=== PATIENT | male | born 1980 | race African-American/Black ===

== ENCOUNTER 2017-05-21 16:10 | Emergency (ER) | payer MEDICAID ==
[~2017-05-21] VITALS: Ht 188 cm; Wt 88.6 kg
[~2017-05-21 16:10] MED LIST: CEPH750C9 PO; NO HOME MEDS
[2017-05-21 16:14] VITALS: BP 105/62
[2017-05-21] MEDS ORDERED: BACDS PO (16:24)
[2017-05-21] MEDS ORDERED: AMOX-419 PO (16:24)
== END 2017-05-21 16:37 ==
LOC: ER 16:11
DX: S71.112A Laceration without foreign body, left thigh, initial encounter (principal); S31.821A Laceration without foreign body of left buttock, initial encounter; F15.159 Other stimulant abuse with stimulant-induced psychotic disorder, unspecified; F29 Unspecified psychosis not due to a substance or known physiological condition; Z60.2 Problems related to living alone; Z98.890 Other specified postprocedural states; Z79.899 Other long term (current) drug therapy; W54.0XXA Bitten by dog, initial encounter; Y93.89 Activity, other specified; Y92.89 Other specified places as the place of occurrence of the external cause; Y99.8 Other external cause status
CPT/HCPCS: 99283

== ENCOUNTER 2020-06-20 22:48 | Emergency (ER) | payer MEDICAID ==
[~2020-06-20] VITALS: Ht 188 cm; Wt 84.1 kg
[2020-06-20 22:57] VITALS: BP 124/79
[2020-06-20] MEDS ORDERED: CEPH250T PO (23:06)
[2020-06-20] MEDS ORDERED: DOXY100C76 PO (23:06)
== END 2020-06-20 23:25 ==
LOC: ER 22:48
DX: L03.115 Cellulitis of right lower limb (principal); F15.90 Other stimulant use, unspecified, uncomplicated; F11.90 Opioid use, unspecified, uncomplicated; Z98.890 Other specified postprocedural states; Z60.2 Problems related to living alone; Z59.0 Homelessness; Z79.2 Long term (current) use of antibiotics
CPT/HCPCS: 99283

== ENCOUNTER 2020-11-29 07:42 | Emergency (ER) | payer MEDICAID ==
[~2020-11-29] VITALS: Ht 188 cm; Wt 90.9 kg
[2020-11-29 07:57] VITALS: BP 126/60
== END 2020-11-29 08:21 | disposition left against medical advice (07) ==
LOC: ER 07:42
DX: R41.82 Altered mental status, unspecified (principal); F15.90 Other stimulant use, unspecified, uncomplicated; F11.90 Opioid use, unspecified, uncomplicated; Z86.14 Personal history of Methicillin resistant Staphylococcus aureus infection; Z98.890 Other specified postprocedural states; Z60.2 Problems related to living alone; Z59.0 Homelessness; Z79.2 Long term (current) use of antibiotics
CPT/HCPCS: 99283

== ENCOUNTER 2021-10-26 12:02 | Emergency (ER) | payer MEDICAID ==
[~2021-10-26] VITALS: Ht 185.4 cm; Wt 90.9 kg
[2021-10-26 12:06] VITALS: BP 130/83
[2021-10-26] MEDS ORDERED: normal saline 1000ML IV soln IVB ONE (12:10)
[2021-10-26 13:02] LABS: HEMOGLOBIN 13.4 g/dl (14.0-17.9); MONOCYTES # (AUTO) 0.8 X10'3 (0-0.9); NEUTROPHILS % (AUTO) 21.3 % (42-75); RED BLOOD COUNT 4.78 X10'6 (4.70-6.10)
[2021-10-26 13:04] LABS: BASOPHILS % (AUTO) 0.3 % (0-1); EOSINOPHILS % (AUTO) 0.9 % (0-6); HEMATOCRIT 40.1 % (42.0-52.0); LYMPHOCYTES % (AUTO) 61.4 % (21-51); MEAN CORPUSCULAR HGB CONC 33.4 g/dL (33.0-36.5); MEAN CORPUSCULAR VOLUME 83.9 FL (78-98); MEAN PLATELET VOLUME 7.1 FL (7.4-10.4); MONOCYTES % (AUTO) 16.1 % (2-12); NEUTROPHILS # (AUTO) 1.1 X10'3 (1.8-7.7); PLATELET COUNT 183 X10'3 (140-440); RED CELL DISTRIBUTION WIDTH 13.4 % (11.5-14.5)
[2021-10-26 13:15] LABS: ALANINE AMINOTRANSFERASE 24 U/L (12-78); ALBUMIN 3.5 G/DL (3.4-5.0); ALBUMIN/GLOBULIN RATIO 0.9 (1.1-1.5); ALKALINE PHOSPHATASE 60 IU/L (46-116); ANION GAP 5 (8-16); ASPARTATE AMINO TRANSFERASE 22 U/L (10-37); BILIRUBIN,TOTAL 0.5 MG/DL (0.1-1.0); BLOOD UREA NITROGEN 15 MG/DL (7-18); BUN/CREATININE RATIO 10.9 (5.4-32.0); CALCIUM 8.5 MG/DL (8.5-10.1); CHLORIDE 104 MMOL/L (99-107); CREATININE 1.38 MG/DL (0.60-1.10); GLUCOSE 100 MG/DL (70-104); POTASSIUM 4.2 MMOL/L (3.5-5.1); SODIUM 141 MMOL/L (135-145); TOTAL CARBON DIOXIDE 31.8 MMOL/L (24-32); TOTAL PROTEIN 7.4 G/DL (6.4-8.2); eGFR 69 ML/MIN
--- NOTE | 2021-10-26 13:17 | NUR ---
PT SEEN AMBULATING OUT OF ED BY EMS. PT'S IV CATHETER FOUND ON FLOOR WITH FLUIDS ATTACHED, CATHETER FULLT INTACT. RN AND CHARGE NURSE INFORMED.
[2021-10-26 13:19] LABS: CREATINE KINASE 124 U/L (39-308); MAGNESIUM 1.9 MG/DL (1.5-2.4)
[2021-10-26 13:44] LABS: TOTAL CELLS COUNTED 100
[2021-10-26 13:45] LABS: PLATELET ESTIMATE NORMAL
== END 2021-10-26 13:23 | disposition left against medical advice (07) ==
LOC: ER 12:03
DX: T40.411A Poisoning by fentanyl or fentanyl analogs, accidental (unintentional), initial encounter (principal); R07.89 Other chest pain; F12.90 Cannabis use, unspecified, uncomplicated; F15.90 Other stimulant use, unspecified, uncomplicated; Z86.14 Personal history of Methicillin resistant Staphylococcus aureus infection; Z60.2 Problems related to living alone; Z59.00 Homelessness unspecified; Z98.890 Other specified postprocedural states; Z79.899 Other long term (current) drug therapy; Y92.89 Other specified places as the place of occurrence of the external cause
CPT/HCPCS: 36415; 80053; 82550; 82948; 83735; 84484; 85007; 85025; 93005; 96360; 99284; J7030

== ENCOUNTER 2022-07-31 14:04 | Emergency (ER) | payer MEDICAID ==
[~2022-07-31] VITALS: Ht 190.5 cm; Wt 90.9 kg
[2022-07-31 14:25] VITALS: BP 133/78
== END 2022-07-31 14:29 ==
LOC: ER 14:05
DX: Z02.89 Encounter for other administrative examinations (principal); F12.90 Cannabis use, unspecified, uncomplicated; F15.90 Other stimulant use, unspecified, uncomplicated; F11.90 Opioid use, unspecified, uncomplicated; Z86.14 Personal history of Methicillin resistant Staphylococcus aureus infection; Z60.2 Problems related to living alone; Z59.00 Homelessness unspecified; Z98.890 Other specified postprocedural states; Z79.899 Other long term (current) drug therapy
CPT/HCPCS: 99283

== ENCOUNTER 2022-09-12 12:01 | Emergency (ER) | payer MEDICAID ==
[~2022-09-12] VITALS: Ht 190.5 cm; Wt 76.0 kg
[2022-09-12 12:17] VITALS: BP 147/93
[2022-09-12 12:21] LABS: BASOPHILS % (AUTO) 0.3 % (0-1); EOSINOPHILS # (AUTO) 0.1 X10'3 (0-0.9); EOSINOPHILS % (AUTO) 1.2 % (0-6); MEAN CORPUSCULAR HEMOGLOBIN 28.4 PG (27.0-31.0); MEAN CORPUSCULAR HGB CONC 33.5 g/dL (33.0-36.5); NEUTROPHILS # (AUTO) 2.2 X10'3 (1.8-7.7)
[2022-09-12 12:23] LABS: HEMATOCRIT 43.6 % (42.0-52.0); HEMOGLOBIN 14.6 g/dl (14.0-17.9); LYMPHOCYTES # (AUTO) 5.1 X10'3 (1.1-4.8); LYMPHOCYTES % (AUTO) 63.7 % (21-51); MEAN PLATELET VOLUME 6.7 FL (7.4-10.4); MONOCYTES # (AUTO) 0.6 X10'3 (0-0.9); MONOCYTES % (AUTO) 7.8 % (2-12); PLATELET COUNT 223 X10'3 (140-440); RED BLOOD COUNT 5.13 X10'6 (4.70-6.10); RED CELL DISTRIBUTION WIDTH 13.4 % (11.5-14.5)
[2022-09-12 12:36] LABS: ALANINE AMINOTRANSFERASE 22 U/L (12-78); ALKALINE PHOSPHATASE 58 IU/L (46-116); ANION GAP 8 (8-16); ASPARTATE AMINO TRANSFERASE 22 U/L (10-37); BILIRUBIN,TOTAL 0.7 MG/DL (0.1-1.0); BLOOD UREA NITROGEN 15 MG/DL (7-18); BUN/CREATININE RATIO 11.6 (10.0-20.0); CALCIUM 9.1 MG/DL (8.5-10.1); CHLORIDE 103 MMOL/L (99-107); CREATININE 1.29 MG/DL (0.60-1.10); GLUCOSE 112 MG/DL (70-104); POTASSIUM 3.2 MMOL/L (3.5-5.1); SODIUM 140 MMOL/L (135-145); TOTAL CARBON DIOXIDE 28.7 MMOL/L (24-32); TOTAL PROTEIN 7.9 G/DL (6.4-8.2); eGFR 74 ML/MIN
[2022-09-12 12:45] LABS: MAGNESIUM 2.1 MG/DL (1.5-2.4)
[2022-09-12 15:00] LABS: PLATELET ESTIMATE NORMAL; SMUDGE CELLS 1+; TOTAL CELLS COUNTED 100
[2022-09-13] MEDS ORDERED: HYDR-3686 PO (14:11)
== END 2022-09-12 13:11 | disposition left against medical advice (07) ==
LOC: ER 12:02
DX: R00.2 Palpitations (principal); F15.99 Other stimulant use, unspecified with unspecified stimulant-induced disorder; I10 Essential (primary) hypertension; F17.200 Nicotine dependence, unspecified, uncomplicated; F12.90 Cannabis use, unspecified, uncomplicated; Z59.00 Homelessness unspecified; Z56.0 Unemployment, unspecified
CPT/HCPCS: 36415; 71045; 80053; 83735; 83880; 84484; 85007; 85025; 93005; 99285

== ENCOUNTER 2022-09-13 12:43 | Emergency (ER) | payer MEDICAID ==
[~2022-09-13] VITALS: Ht 190.5 cm; Wt 77.4 kg
[2022-09-13 12:51] VITALS: BP 120/83
--- NOTE | 2022-09-13 13:06 | NUR ---
Pt in FTD. Pt was prescribed B/P medication. Pt wants a refill on his medication. He feels fluttering in his chest. Pt educated to POC. Pt in agreement. Pending providers eval and treatment.
[2022-09-13] MEDS ORDERED: HYDR-3686 PO (14:11)
== END 2022-09-13 14:18 | disposition home or self-care (01) ==
LOC: ER 12:44
DX: F41.9 Anxiety disorder, unspecified (principal); I10 Essential (primary) hypertension; F12.10 Cannabis abuse, uncomplicated; F15.10 Other stimulant abuse, uncomplicated; Z86.14 Personal history of Methicillin resistant Staphylococcus aureus infection; Z59.00 Homelessness unspecified; Z56.0 Unemployment, unspecified
CPT/HCPCS: 99281

== ENCOUNTER 2023-02-21 20:24 | Inpatient (IN) | payer MEDICAID ==
[~2023-02-21] VITALS: Ht 189.2 cm; Wt 90.9 kg
[2023-02-21] MEDS ORDERED: morphine 10mg/ml inj. IM ONE (21:20)
--- NOTE | 2023-02-21 22:04 | NUR ---
Dr. Ahmadi, Hospitalist at bedside.
--- NOTE | 2023-02-21 22:04 | NUR ---
Patient is refusing xrays of spine. He states "I dont have pain in my back"
--- NOTE | 2023-02-21 22:08 | NUR ---
CLAUDE vazquez reviewed by RN, approved by this RN
[2023-02-21 22:12] LABS: BASOPHILS % (AUTO) 0.2 % (0-1); EOSINOPHILS % (AUTO) 0.2 % (0-6); HEMATOCRIT 41.2 % (42.0-52.0); HEMOGLOBIN 13.9 g/dl (14.0-17.9); LYMPHOCYTES # (AUTO) 2.1 X10'3 (1.1-4.8); LYMPHOCYTES % (AUTO) 30.6 % (21-51); MEAN CORPUSCULAR HEMOGLOBIN 28.6 PG (27.0-31.0); MEAN CORPUSCULAR HGB CONC 33.7 g/dL (33.0-36.5); MEAN CORPUSCULAR VOLUME 84.9 FL (78-98); MONOCYTES # (AUTO) 0.9 X10'3 (0-0.9); MONOCYTES % (AUTO) 13.5 % (2-12); NEUTROPHILS # (AUTO) 3.8 X10'3 (1.8-7.7); NEUTROPHILS % (AUTO) 55.5 % (42-75); PLATELET COUNT 216 X10'3 (140-440); RED BLOOD COUNT 4.85 X10'6 (4.70-6.10); RED CELL DISTRIBUTION WIDTH 13.1 % (11.5-14.5); WHITE BLOOD COUNT 6.8 X10'3 (4.5-11.0)
[2023-02-21 22:18] LABS: ALANINE AMINOTRANSFERASE 18 U/L (12-78); ALBUMIN 3.6 G/DL (3.4-5.0); ALBUMIN/GLOBULIN RATIO 0.8 (1.1-1.5); ALKALINE PHOSPHATASE 62 IU/L (46-116); ANION GAP 4 (8-16); ASPARTATE AMINO TRANSFERASE 14 U/L (10-37); BILIRUBIN,TOTAL 1.8 MG/DL (0.1-1.0); BLOOD UREA NITROGEN 18 MG/DL (7-18); BUN/CREATININE RATIO 14.1 (10.0-20.0); CALCIUM 9.6 MG/DL (8.5-10.1); CHLORIDE 98 MMOL/L (99-107); CREATININE 1.28 MG/DL (0.60-1.10); GLUCOSE 112 MG/DL (70-104); POTASSIUM 3.4 MMOL/L (3.5-5.1); SODIUM 135 MMOL/L (135-145); TOTAL CARBON DIOXIDE 33.1 MMOL/L (24-32); TOTAL PROTEIN 7.9 G/DL (6.4-8.2); eCRCL 89 ML/MIN; eGFR 75 ML/MIN
[2023-02-21] MEDS ORDERED: morphine 2 MG/ML inj. syringe IV PRN (22:20)
[2023-02-21] MEDS: normal saline 1000ml 1,000 ML IV SCH (22:20)
[2023-02-21] MEDS ORDERED: potassium Cl 40MEQ/1/2NS 520ml 520 ML IV PRN (22:20)
[2023-02-21] MEDS ORDERED: magnesium Cl slow-release 64mg tablet PO PRN (22:20)
[2023-02-21] MEDS ORDERED: magnesium hydroxide 30ml (MOM) UD suspension PO PRN (22:20)
[2023-02-21] MEDS ORDERED: PERFLUTREN PROTEIN-A MICROSPHR (Optison) 0.22 MG/ML 3ML VIAL IV ONE (22:20)
[2023-02-21] MEDS ORDERED: magnesium 2GM in 50ml NS 50 ML IV PRN (22:20)
[2023-02-21] MEDS ORDERED: potassium Cl 20 mEq SR tablet PO PRN ×2 (22:20)
[2023-02-21] MEDS ORDERED: acetaminophen 325mg tablet PO PRN (22:20)
[2023-02-21] MEDS ORDERED: mag hydrox/Alum hydrox/simeth 30ml oral suspension PO PRN (22:20)
[2023-02-21] MEDS ORDERED: magnesium 4gm in 100ml NS 100 ML IV PRN (22:20)
--- NOTE | 2023-02-21 22:46 | NUR ---
optison not administered in ER
[2023-02-21] MEDS: ceFAZolin/D5W- 1GM premix 50 ML IV SCH (23:44)
[2023-02-22] MEDS ORDERED: morphine 4 MG/ML inj SYRINge IV ONE ×2 (01:05→01:10)
--- NOTE | 2023-02-22 01:20 | NUR ---
Patient in 10/10 pain after application of splint. New one time order from MD for Morphine 6 mg IV.
[2023-02-22 04:27] LABS: BASOPHILS % (AUTO) 0.3 % (0-1); EOSINOPHILS % (AUTO) 0.4 % (0-6); HEMATOCRIT 40.2 % (42.0-52.0); HEMOGLOBIN 13.8 g/dl (14.0-17.9); LYMPHOCYTES # (AUTO) 2.2 X10'3 (1.1-4.8); LYMPHOCYTES % (AUTO) 28.7 % (21-51); MEAN CORPUSCULAR HEMOGLOBIN 28.8 PG (27.0-31.0); MEAN CORPUSCULAR HGB CONC 34.3 g/dL (33.0-36.5); MEAN CORPUSCULAR VOLUME 83.9 FL (78-98); MEAN PLATELET VOLUME 7.2 FL (7.4-10.4); MONOCYTES # (AUTO) 1.1 X10'3 (0-0.9); MONOCYTES % (AUTO) 14.8 % (2-12); NEUTROPHILS # (AUTO) 4.2 X10'3 (1.8-7.7); NEUTROPHILS % (AUTO) 55.8 % (42-75); PLATELET COUNT 222 X10'3 (140-440); RED CELL DISTRIBUTION WIDTH 13.6 % (11.5-14.5); WHITE BLOOD COUNT 7.6 X10'3 (4.5-11.0)
[2023-02-22 04:29] LABS: ALANINE AMINOTRANSFERASE 19 U/L (12-78); ALBUMIN 3.5 G/DL (3.4-5.0); ALBUMIN/GLOBULIN RATIO 0.8 (1.1-1.5); ALKALINE PHOSPHATASE 58 IU/L (46-116); ANION GAP 6 (8-16); ASPARTATE AMINO TRANSFERASE 17 U/L (10-37); BILIRUBIN,TOTAL 1.5 MG/DL (0.1-1.0); BLOOD UREA NITROGEN 17 MG/DL (7-18); BUN/CREATININE RATIO 16.2 (10.0-20.0); CALCIUM 9.2 MG/DL (8.5-10.1); CHLORIDE 99 MMOL/L (99-107); CREATININE 1.05 MG/DL (0.60-1.10); GLUCOSE 116 MG/DL (70-104); MAGNESIUM 2.1 MG/DL (1.5-2.4); POTASSIUM 3.8 MMOL/L (3.5-5.1); SODIUM 135 MMOL/L (135-145); TOTAL CARBON DIOXIDE 30.4 MMOL/L (24-32); eCRCL 108 ML/MIN; eGFR > 90 ML/MIN
[2023-02-22 05:00] LABS: URINE AMPHETAMINE SCREEN POSITIVE (Neg); URINE BARBITUATE SCREEN NEGATIVE (Neg); URINE BENZODIAZEPINES SCREEN NEGATIVE (Neg); URINE CANNABINOID SCREEN POSITIVE (Neg); URINE COCAINE SCREEN NEGATIVE (Neg); URINE METHADONE SCREEN NEGATIVE (Neg); URINE OPIATE SCREEN POSITIVE (Neg); URINE PHENCYCLIDINE SCREEN NEGATIVE (Neg)
--- NOTE | 2023-02-22 06:45 | NUR ---
RECEIVED PT A&O X4, RIGHT ANKLE IN SPLINT. CSM INTACT DISTAL TO SPLINT. PENDING VENOUS STUDY AND ECHOCARDIOGRAM.
--- NOTE | 2023-02-22 07:14 | NUR ---
Dr. Dragan Rutherford (Orthopedic surgeon) came to see patient. He did marked the site for surgery. Per Dr. Rutherford, patient is going for surgery today sometime in the afternoon. Patient was instructed to be NPO
--- NOTE | 2023-02-22 07:18 | NUR ---
installer technician paged to request for the venous ultrasound of the leg to be done today
--- NOTE | 2023-02-22 07:19 | NUR ---
Paged industrial technologist regarding echocardiography ordered
[2023-02-22] MEDS: heparin, porcine 5000 units/ml vial SQ SCH ×3 (07:24→22:27)
[2023-02-22] MEDS: K and/or MAG REPLACEMENT MC SCH ×2 (07:28→19:33)
[2023-02-22] MEDS ORDERED: docusate sod 100mg capsule PO SCH (08:00)
[2023-02-22] MEDS: ceFAZolin/D5W- 1GM premix 50 ML IV SCH ×2 (08:13→15:42)
[2023-02-22] MEDS: normal saline 1000ml 1,000 ML IV SCH ×2 (08:20→15:42)
--- NOTE | 2023-02-22 13:46 | NUR ---
PT GIVEN MEAL TRAY, NOW SLEEPING. RR EVEN AND NONLABORED.
--- NOTE | 2023-02-22 14:40 | NUR ---
Received report from ED RNAnnmarie
[2023-02-22 15:10] VITALS: BP 120/70; PULSE 74; RESP 16; TEMP 98; O2SAT 99
[2023-02-22 15:30] VITALS: RESP 16; O2SAT 99
[2023-02-22] MEDS: HYDROcodone/acetaminophen 10/325mg tab PO PRN ×2 (15:47→21:53)
[2023-02-22] MEDS: nicotine 7mg patch - 24hr TD SCH (16:18)
[2023-02-22 18:00] VITALS: BP 169/78; PULSE 73; RESP 15; TEMP 98.2; O2SAT 98
[2023-02-22 18:15] VITALS: RESP 16; O2SAT 99
[2023-02-22] MEDS: morphine 2 MG/ML inj. syringe IV PRN (18:19)
[2023-02-22] MEDS ORDERED: ringers solution, lacted 1,000 ML IV ONE (19:40)
[2023-02-22 22:00] VITALS: BP 112/76; PULSE 76; RESP 13; TEMP 98.5; O2SAT 99
[2023-02-23] VITALS (24 sets, daily range): BP systolic 90–110; BP diastolic 50–71; PULSE 70–94; RESP 16–22; TEMP 97.6–99.2; O2SAT 94–100
[2023-02-23] MEDS: ceFAZolin/D5W- 1GM premix 50 ML IV SCH ×3 (00:17→17:13)
[2023-02-23] MEDS: morphine 2 MG/ML inj. syringe IV PRN ×2 (00:17→13:00)
[2023-02-23] MEDS: normal saline 1000ml 1,000 ML IV SCH ×2 (02:00→14:20)
[2023-02-23] MEDS: HYDROcodone/acetaminophen 10/325mg tab PO PRN ×2 (02:18→05:49)
[2023-02-23] MEDS ORDERED: famotidine 20mg tablet PO ONE (06:00)
[2023-02-23 06:14] LABS: BASOPHILS % (AUTO) 0.3 % (0-1); EOSINOPHILS % (AUTO) 0.2 % (0-6); HEMOGLOBIN 13.7 g/dl (14.0-17.9); LYMPHOCYTES # (AUTO) 2.3 X10'3 (1.1-4.8); LYMPHOCYTES % (AUTO) 37.4 % (21-51); MEAN CORPUSCULAR HEMOGLOBIN 29.1 PG (27.0-31.0); MEAN CORPUSCULAR HGB CONC 34.3 g/dL (33.0-36.5); MEAN CORPUSCULAR VOLUME 84.7 FL (78-98); MEAN PLATELET VOLUME 7.2 FL (7.4-10.4); MONOCYTES # (AUTO) 0.8 X10'3 (0-0.9); MONOCYTES % (AUTO) 13.5 % (2-12); NEUTROPHILS % (AUTO) 48.6 % (42-75); PLATELET COUNT 210 X10'3 (140-440); RED BLOOD COUNT 4.72 X10'6 (4.70-6.10); RED CELL DISTRIBUTION WIDTH 13.7 % (11.5-14.5); WHITE BLOOD COUNT 6.2 X10'3 (4.5-11.0)
[2023-02-23 06:20] LABS: PROTHROMBIN TIME 11.2 SECONDS (9.0-12.0)
--- NOTE | 2023-02-23 06:20 | NUR ---
Problems reprioritized. Patient report given, questions answered & plan of care reviewed with AUSTIN Slaughter.
[2023-02-23 06:23] LABS: PRE OP PARTIAL THROMB. TIME 47 SECONDS (22-32)
[2023-02-23 06:25] LABS: ALANINE AMINOTRANSFERASE 17 U/L (12-78); ALBUMIN 3.2 G/DL (3.4-5.0); ALBUMIN/GLOBULIN RATIO 0.7 (1.1-1.5); ALKALINE PHOSPHATASE 51 IU/L (46-116); ANION GAP 3 (8-16); ASPARTATE AMINO TRANSFERASE 24 U/L (10-37); BILIRUBIN,TOTAL 1.2 MG/DL (0.1-1.0); BLOOD UREA NITROGEN 18 MG/DL (7-18); BUN/CREATININE RATIO 16.8 (10.0-20.0); CALCIUM 9.1 MG/DL (8.5-10.1); CHLORIDE 102 MMOL/L (99-107); CREATININE 1.07 MG/DL (0.60-1.10); GLUCOSE 109 MG/DL (70-104); MAGNESIUM 2.2 MG/DL (1.5-2.4); POTASSIUM 4.4 MMOL/L (3.5-5.1); SODIUM 138 MMOL/L (135-145); TOTAL CARBON DIOXIDE 33.2 MMOL/L (24-32); TOTAL PROTEIN 7.5 G/DL (6.4-8.2); eCRCL 106 ML/MIN; eGFR > 90 ML/MIN
--- NOTE | 2023-02-23 06:44 | NUR ---
Patient in room ORTHO 4021. I have received report from Keila and had the opportunity to ask questions and assume patient care.
[2023-02-23] MEDS: K and/or MAG REPLACEMENT MC SCH ×2 (08:00→20:00)
--- NOTE | 2023-02-23 09:20 | NUR ---
Called OR charge to ask about surg tme and PTT of 47. Advised OR charge would let anesthesia know
[2023-02-23] MEDS: nicotine 7mg patch - 24hr TD SCH (09:31)
[2023-02-23] MEDS ORDERED: fentaNYL/PF 50MCG/1 ML 2ML syringe IV PRN ×2 (10:35)
[2023-02-23] MEDS ORDERED: ondansetron/PF 4mg/2ml inj IV PRN (10:35)
[2023-02-23] MEDS ORDERED: hydrALAZINE 20mg/ml inj. IV PRN (10:35)
[2023-02-23] MEDS ORDERED: HYDROmorphone/PF 0.2 MG/ML SYRINGE IV PRN ×2 (10:35)
[2023-02-23] MEDS ORDERED: ringers solution, lacted 1,000 ML IV SCH (10:35)
[2023-02-23] MEDS ORDERED: labetalol 20mg/4ml (5mg/ml) syringe IV PRN (10:35)
[2023-02-23] MEDS ORDERED: BUPIVAcaine/PF 2.5 mg/ml (0.25%) 30ml vial ONE (12:43)
[2023-02-23] MEDS: ondansetron/PF 4mg/2ml inj IV PRN (13:00)
[2023-02-23] MEDS ORDERED: midazolam 1 mg/ML 2ml injection ONE (13:28)
[2023-02-23] MEDS ORDERED: ondansetron/PF 4mg/2ml inj ONE (13:28)
[2023-02-23] MEDS ORDERED: sevoflurane 250ml liquid IH ONE (13:28)
[2023-02-23] MEDS ORDERED: fentaNYL/PF 50MCG/1 ML 2ML syringe ONE ×2 (13:28→14:03)
[2023-02-23] MEDS ORDERED: LIDOcaine 2% (20mg/ml) 5ml vial ONE (13:36)
[2023-02-23] MEDS ORDERED: dexamethasone sod phosphate 4mg/ml inj. ONE (13:36)
[2023-02-23] MEDS ORDERED: propofol inj 20 ML IV ONE (13:36)
[2023-02-23] MEDS ORDERED: acetaminophen 1,000mg/100ml IV 100 ML IV ONE (13:48)
[2023-02-23] MEDS ORDERED: ketamine 50mg/5ml syringe ONE (14:03)
--- NOTE | 2023-02-23 14:48 | NUR ---
Received from OR via HOSPITAL BED, accompanied by Anesthesiologist DR WATERS and report given by Anesthesiologist. PT IS GROGGY. PT PLACED ON BEDSIDE MONITOR, VSS. PT IS RECEIVING 8L 02 TO MASK AND TOLERATING WELL, WILL TITRATE DOWN PT TOLERATES. PT HAS 18G PIV TO LEFT UPPER ARM WITH LR INFUSING ORDERED. PT HAS EXTERNAL FIXATORS TO RLE WITH NIESHA WRAP, CDI. PT IS RESTING WITH NO S/S OF DISTRESS/DISCOMFORT AT THIS TIME. WILL CONTINUE TO ASSESS
[2023-02-23] MEDS ORDERED: cefazolin 2gm/D5W 100mL 100 ML IV SCH (16:00)
--- NOTE | 2023-02-23 16:40 | NUR ---
Patient in room ORTHO 4021. I have received report from Trinidad and had the opportunity to ask questions and assume patient care.
--- NOTE | 2023-02-23 16:55 | NUR ---
PATIENT HAS MET ALL CRITERIA FOR TRANSFER TO THE ORTHO FLOOR. VSS. DRESSINGS INTACT. BED LOW, CALL LIGHT PRESENT AND 2 RAILS UP. CELIO RN PRESENT TO ACCEPT CARE OF PATIENT AND REPORT HAS BEEN CALLED. ALL QUESTIONS ANSWERED TO ACCEPTING RN.
--- NOTE | 2023-02-23 18:19 | NUR ---
Problems reprioritized. Patient report given, questions answered & plan of care reviewed with Sonali.
[2023-02-23] MEDS: heparin, porcine 5000 units/ml vial SQ SCH (20:00)
[2023-02-24] VITALS (7 sets, daily range): BP systolic 90–143; BP diastolic 63–87; PULSE 71–89; RESP 16–18; TEMP 97.7–98.8; O2SAT 92–100
[2023-02-24] MEDS: ceFAZolin/D5W- 1GM premix 50 ML IV SCH ×3 (00:18→16:15)
[2023-02-24] MEDS: normal saline 1000ml 1,000 ML IV SCH ×3 (00:20→21:11)
[2023-02-24 06:18] LABS: HEMOGLOBIN 12.2 g/dl (14.0-17.9); PLATELET COUNT 245 X10'3 (140-440)
[2023-02-24 06:20] LABS: BASOPHILS % (AUTO) 0.3 % (0-1); EOSINOPHILS % (AUTO) 0.1 % (0-6); HEMATOCRIT 35.6 % (42.0-52.0); LYMPHOCYTES # (AUTO) 1.9 X10'3 (1.1-4.8); LYMPHOCYTES % (AUTO) 18.5 % (21-51); MEAN CORPUSCULAR HGB CONC 34.3 g/dL (33.0-36.5); MEAN CORPUSCULAR VOLUME 84.7 FL (78-98); MONOCYTES % (AUTO) 9.9 % (2-12); NEUTROPHILS # (AUTO) 7.4 X10'3 (1.8-7.7); NEUTROPHILS % (AUTO) 71.2 % (42-75); RED BLOOD COUNT 4.21 X10'6 (4.70-6.10); RED CELL DISTRIBUTION WIDTH 13.4 % (11.5-14.5); WHITE BLOOD COUNT 10.5 X10'3 (4.5-11.0)
[2023-02-24 06:21] LABS: ALANINE AMINOTRANSFERASE 14 U/L (12-78); ALBUMIN 2.9 G/DL (3.4-5.0); ALBUMIN/GLOBULIN RATIO 0.7 (1.1-1.5); ALKALINE PHOSPHATASE 49 IU/L (46-116); ANION GAP 5 (8-16); ASPARTATE AMINO TRANSFERASE 19 U/L (10-37); BILIRUBIN,TOTAL 0.6 MG/DL (0.1-1.0); BLOOD UREA NITROGEN 19 MG/DL (7-18); BUN/CREATININE RATIO 18.8 (10.0-20.0); CALCIUM 8.8 MG/DL (8.5-10.1); CHLORIDE 103 MMOL/L (99-107); CREATININE 1.01 MG/DL (0.60-1.10); GLUCOSE 125 MG/DL (70-104); MAGNESIUM 1.9 MG/DL (1.5-2.4); POTASSIUM 4.1 MMOL/L (3.5-5.1); SODIUM 135 MMOL/L (135-145); TOTAL CARBON DIOXIDE 26.8 MMOL/L (24-32); TOTAL PROTEIN 6.8 G/DL (6.4-8.2); eCRCL 112 ML/MIN; eGFR > 90 ML/MIN
--- NOTE | 2023-02-24 06:27 | NUR ---
Problems reprioritized. Patient report given, questions answered & plan of care reviewed with AUSTIN Walker.
--- NOTE | 2023-02-24 06:44 | NUR ---
Patient in room ORTHO 4021. I have received report from Sonali and had the opportunity to ask questions and assume patient care.
[2023-02-24] MEDS: K and/or MAG REPLACEMENT MC SCH ×2 (07:44→20:00)
[2023-02-24] MEDS: heparin, porcine 5000 units/ml vial SQ SCH ×2 (07:47→20:00)
[2023-02-24] MEDS: nicotine 7mg patch - 24hr TD SCH (07:48)
[2023-02-24] MEDS: morphine 2 MG/ML inj. syringe IV PRN ×2 (12:23→19:18)
--- NOTE | 2023-02-24 15:10 | NUR ---
RE: Luis A in 7232A, pharm is out of norco 10, too early to give morphine, can we change to a different PO med? Denise
--- NOTE | 2023-02-24 15:35 | NUR ---
Luis A in 4021I, yelling, cussing, creating grief on the floor, more than 30 minutes before I can give morphine, please advise Denise
[2023-02-24] MEDS ORDERED: morphine 2 MG/ML inj. syringe IV ONE (15:40)
[2023-02-24] MEDS: oxyCODONE IR 5mg (immed. release) tablet PO PRN ×2 (16:38→21:11)
--- NOTE | 2023-02-24 18:21 | NUR ---
Problems reprioritized. Patient report given, questions answered & plan of care reviewed with Sonali.
--- NOTE | 2023-02-24 21:10 | NUR ---
Pt is refusing to keep his leg on his wedge elevated in bed. He is moving his leg around all over in bed. Was advised against this by the Charge Nurse and I. The bed was gatched to give some elevation to the leg but the patient is continually moving his leg around despite warning him of complications that could arise from this.
[2023-02-25] VITALS (7 sets, daily range): BP systolic 109–127; BP diastolic 67–77; PULSE 57–86; RESP 15–20; TEMP 97.8–99.3; O2SAT 94–99
[2023-02-25] MEDS: morphine 2 MG/ML inj. syringe IV PRN (00:14)
[2023-02-25] MEDS: ceFAZolin/D5W- 1GM premix 50 ML IV SCH ×3 (00:15→15:30)
[2023-02-25] MEDS: normal saline 1000ml 1,000 ML IV SCH ×2 (05:04→15:30)
[2023-02-25] MEDS: oxyCODONE IR 5mg (immed. release) tablet PO PRN ×3 (05:22→19:44)
[2023-02-25 06:12] LABS: BASOPHILS % (AUTO) 0.2 % (0-1); EOSINOPHILS % (AUTO) 0.1 % (0-6); HEMATOCRIT 35.6 % (42.0-52.0); LYMPHOCYTES # (AUTO) 2.5 X10'3 (1.1-4.8); LYMPHOCYTES % (AUTO) 27.9 % (21-51); MEAN CORPUSCULAR HEMOGLOBIN 28.2 PG (27.0-31.0); MEAN CORPUSCULAR HGB CONC 33.6 g/dL (33.0-36.5); MEAN PLATELET VOLUME 6.7 FL (7.4-10.4); MONOCYTES # (AUTO) 1.2 X10'3 (0-0.9); MONOCYTES % (AUTO) 12.9 % (2-12); NEUTROPHILS # (AUTO) 5.3 X10'3 (1.8-7.7); NEUTROPHILS % (AUTO) 58.9 % (42-75); PLATELET COUNT 254 X10'3 (140-440); RED BLOOD COUNT 4.24 X10'6 (4.70-6.10); RED CELL DISTRIBUTION WIDTH 13.8 % (11.5-14.5)
--- NOTE | 2023-02-25 06:26 | NUR ---
Patient in room ORTHO 4021. I have received report from Sonali and had the opportunity to ask questions and assume patient care.
[2023-02-25 06:32] LABS: ALANINE AMINOTRANSFERASE 19 U/L (12-78); ALBUMIN/GLOBULIN RATIO 0.7 (1.1-1.5); ALKALINE PHOSPHATASE 50 IU/L (46-116); ANION GAP 6 (8-16); ASPARTATE AMINO TRANSFERASE 25 U/L (10-37); BILIRUBIN,TOTAL 0.8 MG/DL (0.1-1.0); BLOOD UREA NITROGEN 10 MG/DL (7-18); BUN/CREATININE RATIO 9.3 (10.0-20.0); CALCIUM 8.9 MG/DL (8.5-10.1); CHLORIDE 100 MMOL/L (99-107); CREATININE 1.07 MG/DL (0.60-1.10); GLUCOSE 101 MG/DL (70-104); MAGNESIUM 1.5 MG/DL (1.5-2.4); POTASSIUM 3.5 MMOL/L (3.5-5.1); SODIUM 135 MMOL/L (135-145); TOTAL CARBON DIOXIDE 28.9 MMOL/L (24-32); TOTAL PROTEIN 7.1 G/DL (6.4-8.2); eCRCL 106 ML/MIN; eGFR > 90 ML/MIN
--- NOTE | 2023-02-25 06:32 | NUR ---
Problems reprioritized. Patient report given, questions answered & plan of care reviewed with AUSTIN Walker.
[2023-02-25] MEDS: K and/or MAG REPLACEMENT MC SCH ×2 (08:00→20:00)
[2023-02-25] MEDS: heparin, porcine 5000 units/ml vial SQ SCH ×2 (08:00→20:00)
[2023-02-25] MEDS: nicotine 7mg patch - 24hr TD SCH (08:15)
[2023-02-25 10:57] LABS: HBSAG SCREEN Negative (Negative); HEPATITIS C VIRUS ANTIBODY Reactive (Non Reactive)
--- NOTE | 2023-02-25 13:36 | NUR ---
Initial: Pt admit DX closed tibia/fibula fx s/p jumping off wall hx meth/opiate/fentanyl abuse per EMR. Post-op day 2 s/p external fixator placement to RLE per EMR. PO ~81% avg regular diet meeting 100% protein needs and ~92% kcal estimated needs. LBM 02/23 received PRN MoM 02/22 per EMR. No nutrition interventions at this time. Will continue to follow. Rec: 1. continue regular diet; encourage PO 2. monitor PO trends for ONS needs 3. routine bowel care 4. scaled wt this admit; subsequent weekly wt Addendum: 02/25/23 at [address] Amended: Links added.
[2023-02-25 16:29] LABS: URINE AMPHETAMINE SCREEN NEGATIVE (Neg); URINE BARBITUATE SCREEN NEGATIVE (Neg); URINE BENZODIAZEPINES SCREEN NEGATIVE (Neg); URINE CANNABINOID SCREEN NEGATIVE (Neg); URINE COCAINE SCREEN NEGATIVE (Neg); URINE METHADONE SCREEN NEGATIVE (Neg); URINE OPIATE SCREEN POSITIVE (Neg); URINE PHENCYCLIDINE SCREEN NEGATIVE (Neg)
[2023-02-25] MEDS: morphine 4 MG/ML inj SYRINge IV PRN ×2 (17:56→22:36)
[2023-02-25] MEDS: ondansetron/PF 4mg/2ml inj IV PRN (17:56)
--- NOTE | 2023-02-25 18:24 | NUR ---
Problems reprioritized. Patient report given, questions answered & plan of care reviewed with
--- NOTE | 2023-02-25 19:49 | NUR ---
focused assessment. pt turned on right side. short answers, prefers to be left alone. interrupts with answers before question is finished. declines to elevate right foot on pillow nor ice. pt covered in blankets. uses urinal. oxy given for pain. pulses intact. lungs and heart clear. pt voids small amount at a time - 2nd urinal provided for ease of use and emptying. a/o x4. noted drainage on bottom of thierry wrap to right foot size of raquetball. dark red old drainage, not fresh. encouraged to elevate foot on pillow. pt noncompliant.
--- NOTE | 2023-02-25 22:36 | NUR ---
found pt in bed lying own supine with right knee flexed foot on bed with weight on foot pain stated a 11. Educated about not putting weight on foot and keeping on pillow. Pt very restless.
[2023-02-26] MEDS: ceFAZolin/D5W- 1GM premix 50 ML IV SCH ×3 (00:28→16:23)
[2023-02-26] MEDS: normal saline 1000ml 1,000 ML IV SCH ×3 (00:29→13:53)
[2023-02-26] MEDS: morphine 4 MG/ML inj SYRINge IV PRN ×2 (03:01→08:28)
[2023-02-26] MEDS: ondansetron/PF 4mg/2ml inj IV PRN ×3 (03:01→23:05)
--- NOTE | 2023-02-26 04:52 | NUR ---
paged Dr. Snell: "pt in [id number] heavy vomiting. has Zofran Q6H, which was given 1.5 hours ago, partially effective. may i have an order for compazine or other medication for this patient?"
[2023-02-26] MEDS ORDERED: proCHLORperazine 10mg tablet PO PRN (05:00)
--- NOTE | 2023-02-26 06:19 | NUR ---
Report to Bayron AVILA
[2023-02-26 06:21] LABS: BASOPHILS % (AUTO) 0.3 % (0-1); EOSINOPHILS % (AUTO) 0.3 % (0-6); HEMATOCRIT 37.1 % (42.0-52.0); HEMOGLOBIN 12.6 g/dl (14.0-17.9); LYMPHOCYTES # (AUTO) 1.8 X10'3 (1.1-4.8); LYMPHOCYTES % (AUTO) 20.5 % (21-51); MEAN CORPUSCULAR HEMOGLOBIN 28.3 PG (27.0-31.0); MEAN CORPUSCULAR VOLUME 83.1 FL (78-98); MEAN PLATELET VOLUME 6.9 FL (7.4-10.4); MONOCYTES % (AUTO) 11.3 % (2-12); NEUTROPHILS % (AUTO) 67.6 % (42-75); PLATELET COUNT 273 X10'3 (140-440); RED BLOOD COUNT 4.47 X10'6 (4.70-6.10); RED CELL DISTRIBUTION WIDTH 13.4 % (11.5-14.5); WHITE BLOOD COUNT 8.8 X10'3 (4.5-11.0)
[2023-02-26 06:48] LABS: ALANINE AMINOTRANSFERASE 18 U/L (12-78); ALBUMIN 3.1 G/DL (3.4-5.0); ALBUMIN/GLOBULIN RATIO 0.7 (1.1-1.5); ALKALINE PHOSPHATASE 49 IU/L (46-116); ANION GAP 9 (8-16); ASPARTATE AMINO TRANSFERASE 22 U/L (10-37); BILIRUBIN,TOTAL 1.5 MG/DL (0.1-1.0); BLOOD UREA NITROGEN 13 MG/DL (7-18); CALCIUM 9.4 MG/DL (8.5-10.1); CHLORIDE 100 MMOL/L (99-107); CREATININE 0.93 MG/DL (0.60-1.10); GLUCOSE 108 MG/DL (70-104); POTASSIUM 3.5 MMOL/L (3.5-5.1); SODIUM 136 MMOL/L (135-145); TOTAL CARBON DIOXIDE 26.8 MMOL/L (24-32); TOTAL PROTEIN 7.3 G/DL (6.4-8.2); eCRCL 122 ML/MIN; eGFR > 90 ML/MIN
--- NOTE | 2023-02-26 06:49 | NUR ---
Patient in room ORTHO 4021. I have received report from CARY ARCE and had the opportunity to ask questions and assume patient care.
[2023-02-26 08:00] VITALS: BP 109/73; PULSE 70; RESP 18; TEMP 99.4; O2SAT 100
[2023-02-26] MEDS: heparin, porcine 5000 units/ml vial SQ SCH ×2 (08:00→20:00)
[2023-02-26] MEDS: K and/or MAG REPLACEMENT MC SCH ×2 (08:00→20:00)
[2023-02-26] MEDS: nicotine 7mg patch - 24hr TD SCH (08:28)
[2023-02-26 09:21] VITALS: RESP 16; O2SAT 100
[2023-02-26 11:06] VITALS: BP 111/71; PULSE 68; RESP 20; TEMP 99; O2SAT 100
--- NOTE | 2023-02-26 13:18 | NUR ---
PAGER ID: [phone] MESSAGE: AUSTIN MILLER, ORTHO, [id number]. RE: [id number]. PT. FENTANYL AND OPIOID POSS YEST. CAN PT. BE ON ETOH PROTOCOL? PT. HAS 2 EMESIS BOUTS TODAY AND LASTNIGHT. JENY SARAH RECCOMENDS IT.
[2023-02-26] MEDS ORDERED: LORazepam 2 mg/ml vial IV PRN (15:05)
--- NOTE | 2023-02-26 15:08 | NUR ---
WOC received a nursing consult to evaluate right ankle surgical wound that includes external fixation. Surgical operative note states that dressing to be changed only when saturated otherwise performed in the OR. Communicated with nursing concerning surgical directives.
[2023-02-26] MEDS ORDERED: HYDROmorphone 1 mg/ml syringe IV PRN (15:50)
[2023-02-26] MEDS: LORazepam 2 mg/ml vial IV PRN ×2 (16:14→21:54)
[2023-02-26] MEDS: methadone 10mg tablet PO SCH (16:41)
[2023-02-26] MEDS ORDERED: potassium Cl 20 mEq SR tablet PO PRN ×2 (16:45)
[2023-02-26] MEDS ORDERED: potassium Cl 40MEQ/1/2NS 520ml 520 ML IV PRN (16:45)
[2023-02-26 18:00] VITALS: BP 103/70; PULSE 78; RESP 20; TEMP 98.6; O2SAT 99
--- NOTE | 2023-02-26 19:02 | NUR ---
Problems reprioritized. Patient report given TO SHAYLA MCGUIRE RN, questions answered & plan of care reviewed with .
--- NOTE | 2023-02-26 19:05 | NUR ---
Patient in room ORTHO 4021. I have received report from PAUL AVILA and had the opportunity to ask questions and assume patient care.
[2023-02-26 20:00] VITALS: RESP 18; O2SAT 96
[2023-02-26] MEDS ORDERED: methadone 10mg tablet PO SCH ×2 (20:00)
[2023-02-26 22:00] VITALS: BP 119/66; PULSE 67; RESP 16; TEMP 98.9; O2SAT 95
[2023-02-27] MEDS: ceFAZolin/D5W- 1GM premix 50 ML IV SCH ×3 (00:16→16:03)
[2023-02-27] MEDS: normal saline 1000ml 1,000 ML IV SCH ×2 (00:16→13:41)
[2023-02-27 06:00] VITALS: BP 122/77; PULSE 67; RESP 14; TEMP 97.9; O2SAT 99
--- NOTE | 2023-02-27 06:40 | NUR ---
Problems reprioritized. Patient report given, questions answered & plan of care reviewed with CHASE AVILA.
--- NOTE | 2023-02-27 06:49 | NUR ---
Patient in room ORTHO 4021. I have received report from AUSTIN Everett and had the opportunity to ask questions and assume patient care.
[2023-02-27] MEDS: K and/or MAG REPLACEMENT MC SCH ×2 (08:00→21:15)
[2023-02-27] MEDS: heparin, porcine 5000 units/ml vial SQ SCH ×3 (08:00→21:18)
[2023-02-27] MEDS: nicotine 7mg patch - 24hr TD SCH (08:43)
[2023-02-27] MEDS: methadone 10mg tablet PO SCH (08:43)
[2023-02-27 10:00] VITALS: BP 114/72; PULSE 60; RESP 15; TEMP 98.5; O2SAT 98
--- NOTE | 2023-02-27 11:51 | NUR ---
isndy-ortho/neuro Pt. Rm 4021B- Gregg Gunn- pt asked if he could have 1 more tablet for his order of methadone. What would you like to do? Thank you
[2023-02-27 18:00] VITALS: BP 128/85; PULSE 61; RESP 16; TEMP 98.7; O2SAT 98
--- NOTE | 2023-02-27 18:30 | NUR ---
Problems reprioritized. Patient report given, questions answered & plan of care reviewed with AUSTIN Everett.
--- NOTE | 2023-02-27 18:40 | NUR ---
Patient in room ORTHO 4021. I have received report from CHASE AVILA and had the opportunity to ask questions and assume patient care.
[2023-02-27 20:00] VITALS: RESP 18; O2SAT 97
[2023-02-27] MEDS ORDERED: methadone 10mg tablet PO ONE (20:00)
[2023-02-27] MEDS ORDERED: traZODone 50mg tablet PO SCH (20:00)
[2023-02-27 22:00] VITALS: BP 117/74; PULSE 60; RESP 16; TEMP 97.7; O2SAT 99
[2023-02-28] MEDS: ceFAZolin/D5W- 1GM premix 50 ML IV SCH ×3 (00:09→17:14)
[2023-02-28] MEDS: normal saline 1000ml 1,000 ML IV SCH (00:31)
[2023-02-28 06:00] VITALS: PULSE 63; RESP 18; TEMP 97.9; O2SAT 96
--- NOTE | 2023-02-28 06:30 | NUR ---
Problems reprioritized. Patient report given, questions answered & plan of care reviewed with SHANDA AVILA.
[2023-02-28] MEDS: K and/or MAG REPLACEMENT MC SCH (08:00)
[2023-02-28] MEDS: heparin, porcine 5000 units/ml vial SQ SCH (08:00)
[2023-02-28] MEDS ORDERED: methadone 10mg tablet PO ONE (08:00)
[2023-02-28] MEDS: methadone 10mg tablet PO SCH ×2 (08:17→18:16)
[2023-02-28] MEDS: nicotine 7mg patch - 24hr TD SCH (08:17)
[2023-02-28 10:00] VITALS: BP 103/55; PULSE 61; RESP 17; TEMP 97.4; O2SAT 99
[2023-02-28] MEDS ORDERED: TRAZ-251 PO (17:04)
[2023-02-28] MEDS ORDERED: ASPI-1 PO (17:09)
[2023-03-01] MEDS ORDERED: aspirin 325mg tablet, delayed-release (Ecotrin) PO SCH (08:00)
== END 2023-02-28 18:50 | disposition home or self-care (01) | DRG 313 ==
LOC: ER 20:25 → ED HOLD 22:24 → EDBEDREQ 02-22 06:32 → ORTHO 4S 02-22 15:00
PROVIDERS: ADMIT Internal Medicine; ATTEND Internal Medicine
PROC: 2W3LX1Z Immobilization of Right Lower Extremity using Splint (ICD-10-PCS; principal; 2023-02-22)
PROC: 0QSG35Z Reposition Right Tibia with External Fixation Device, Percutaneous Approach (ICD-10-PCS; 2023-02-23)
PROC: 3E0T3BZ Introduction of Anesthetic Agent into Peripheral Nerves and Plexi, Percutaneous Approach (ICD-10-PCS; 2023-02-23)
DX: S82.841A Displaced bimalleolar fracture of right lower leg, initial encounter for closed fracture (principal); F11.13 Opioid abuse with withdrawal; S82.871A Displaced pilon fracture of right tibia, initial encounter for closed fracture; F17.200 Nicotine dependence, unspecified, uncomplicated; F19.10 Other psychoactive substance abuse, uncomplicated; I10 Essential (primary) hypertension; F41.9 Anxiety disorder, unspecified; W18.39XA Other fall on same level, initial encounter; Y93.I9 Activity, other involving external motion; Y92.89 Other specified places as the place of occurrence of the external cause; Y99.8 Other external cause status; Z82.49 Family history of ischemic heart disease and other diseases of the circulatory system; Z59.00 Homelessness unspecified
CPT/HCPCS: 36415; 71045; 73560; 73610; 73620; 73700; 74018; 76000; 80053; 80305; 83735; 85025; 85610; 85730; 86803; 87081; 87340; 87522; 93306; 93971; 97116; 97161; 97530; 97535; 99285; A4618; A5200; A6212; A6222; A6223; A6449; A7000; C1713; G0378; J0131; J0690; J1100; J1644; J2060; J2250; J2270; J2274; J2405; J2704; J3010; J3490; J7030

== ENCOUNTER 2023-03-29 01:11 | Emergency (ER) | payer MEDICAID ==
[~2023-03-29] VITALS: Ht 188 cm; Wt 82.8 kg
[~2023-03-29 01:11] MED LIST changes: +ASPI-1 PO; -CEPH750C9 PO; +TRAZ-251 PO
--- NOTE | 2023-03-29 03:27 | NUR ---
PT ARRIVED BACK TO [facility].
[2023-03-29] MEDS ORDERED: oxyCODONE/APAP 10/325mg tablet PO ONE (03:55)
[2023-03-29] MEDS ORDERED: CefTRIAXone 250MG inj IM ONE (04:00)
[2023-03-29] MEDS ORDERED: CefTRIAXone 1000mg IM Kit (w/lidocaine diluent) IM ONE (04:00)
[2023-03-29] MEDS ORDERED: OXYC-145 PO ×2 (05:24→05:26)
[2023-03-29] MEDS ORDERED: AMOX-117 PO ×3 (05:24→05:26)
[2023-03-29 05:38] VITALS: BP 125/79; PULSE 95; RESP 17; TEMP 99; O2SAT 97
== END 2023-03-29 05:36 | disposition home or self-care (01) ==
LOC: ER 01:12
DX: T84.624A Infection and inflammatory reaction due to internal fixation device of right fibula, initial encounter (principal); I10 Essential (primary) hypertension; F12.90 Cannabis use, unspecified, uncomplicated; F15.90 Other stimulant use, unspecified, uncomplicated; F11.90 Opioid use, unspecified, uncomplicated; Z56.0 Unemployment, unspecified; Z59.00 Homelessness unspecified; Z86.14 Personal history of Methicillin resistant Staphylococcus aureus infection; Z79.2 Long term (current) use of antibiotics; Z79.899 Other long term (current) drug therapy
CPT/HCPCS: 73610; 96372; 99283; J0696

== ENCOUNTER 2023-04-09 16:51 | Emergency (ER) | payer MEDICAID ==
[~2023-04-09] VITALS: Ht 188 cm; Wt 84.4 kg
[~2023-04-09 16:51] MED LIST changes: +AMOX-117 PO; -ASPI-1 PO; +OXYC-145 PO
[2023-04-09 17:11] VITALS: TEMP 99
[2023-04-09] MEDS ORDERED: penicillin G benzathine 1.2 million unit/2ml syringe IM ONE (19:00)
[2023-04-09] MEDS ORDERED: DOXY100T2 PO (19:26)
[2023-04-09 19:40] VITALS: BP 140/74; PULSE 88; RESP 18; O2SAT 99
== END 2023-04-09 19:42 | disposition home or self-care (01) ==
LOC: ER 16:52
DX: G89.18 Other acute postprocedural pain (principal); M25.571 Pain in right ankle and joints of right foot
CPT/HCPCS: 73610; 99283

== ENCOUNTER 2023-10-02 02:35 | Emergency (ER) | payer MEDICAID ==
[~2023-10-02] VITALS: Ht 190.5 cm; Wt 120.5 kg
[~2023-10-02 02:35] MED LIST changes: -AMOX-117 PO; +DOXY100T2 PO
[2023-10-02 03:02] VITALS: BP 110/92; PULSE 104; TEMP 98.2; O2SAT 99
[2023-10-02 03:28] VITALS: RESP 16
[2023-10-02] MEDS: DOXYCYCLINE 100MG CAPSULE PO STA (03:33)
[2023-10-02] MEDS ORDERED: DOXY-1 PO (04:12)
== END 2023-10-02 04:25 ==
LOC: ER 02:36
DX: R60.0 Localized edema (principal); I10 Essential (primary) hypertension; F12.90 Cannabis use, unspecified, uncomplicated; F15.90 Other stimulant use, unspecified, uncomplicated; Z87.81 Personal history of (healed) traumatic fracture; Z79.2 Long term (current) use of antibiotics; Z79.899 Other long term (current) drug therapy
CPT/HCPCS: 73590; 93971; 99284